=== PATIENT | female | born 1995 | race Caucasian/White ===

== ENCOUNTER 2017-02-24 13:51 | Emergency (ER) | payer OTHER ==
[2017-02-24 13:51] VITALS: BMI 17.7
[2017-02-24 14:30] VITALS: O2SAT 100
[2017-02-24] MEDS ORDERED: Sodium Chloride 0.9% 1,000 ML IV ONE (17:28)
--- NOTE | 2017-02-24 17:51 | C.PDOC ---
History Of Present Illness 21 y/o female whose PMH includes HTN, presents to the ED accompanied by family member (cousin) for evaluation of multiple complaints. For the past year, patient has been experiencing intermittent episodes of generalized fatigue, headaches which radiate to her upper back, abdominal pain, bilateral leg pain, slight weight loss, and irregular menses (LMP 02/17/17). Family member states patient has possible history of anemia which he describes as a "weakness in the blood." [place] [facility] [place] and has been discharged after undergoing workup. Patient states her symptoms have persisted, and she now presents to the ED for further evaluation. Patient states she finds transient relief from Motrin. Patient denies fever, chills, dizziness, nausea, vomiting, diarrhea, constipation, recent trauma/injury. Patient does not take medication to manage her HTN and does not have a PMD currently. [id number] was initially used to obtain history. 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 History obtained from family member who is at bedside with patient. Time Seen by Provider: 02/24/17 17:01 Chief Complaint (Nursing): Headache History Per: Patient, Family (cousin ) History/Exam Limitations: language barrier Onset/Duration Of Symptoms: Intermittent Episodes (1 year) Current Symptoms Are (Timing): Still Present Additional History Per: Patient Past Medical History Reviewed: Historical Data, Nursing Documentation, Vital Signs Vital Signs: Last Vital Signs Temp 98.3 F 02/24/17 18:59 Pulse 61 02/24/17 18:59 Resp 20 02/24/17 18:59 BP 93/57 L 02/24/17 18:59 Pulse Ox 100 02/24/17 18:59 - Medical History PMH: No Chronic Diseases Surgical History: No Surg Hx Family History: States: Hypertension - Social History Hx Alcohol Use: No Hx Substance Use: No - Immunization History Hx Tetanus Toxoid Vaccination: No Hx Influenza Vaccination: No Hx Pneumococcal Vaccination: No Review Of Systems Except As Marked, All Systems Reviewed And Found Negative. Constitutional: Positive for: Weight loss, Other (+generalized fatigue). Negative for: Fever, Chills Cardiovascular: Negative for: Palpitations Respiratory: Negative for: Shortness of Breath Gastrointestinal: Positive for: Abdominal Pain. Negative for: Nausea, Vomiting , Diarrhea, Constipation Musculoskeletal: Positive for: Neck Pain, Back Pain (upper), Leg Pain ( bilaterally ) Neurological: Positive for: Headache. Negative for: Numbness, Dizziness Physical Exam - Physical Exam Appears: Non-toxic, No Acute Distress Skin: Normal Color, Warm, Dry Head: Atraumatic, Normacephalic Eye(s): bilateral: Normal Inspection, EOMI Oral Mucosa: Moist Neck: Normal ROM, No Paracervical Tenderness, Supple Lymphatic: Normal Exam, No Adenopathy Chest: Symmetrical, No Deformity, No Tenderness Cardiovascular: Rhythm Regular, No Murmur Respiratory: Normal Breath Sounds, No Rales, No Rhonchi, No Wheezing Gastrointestinal/Abdominal: Bowel Sounds (active), Soft, Tenderness ( generalized ), No Mass, No Distention, No Guarding, No Rebound, No Hernia Back: Normal Inspection, No Vertebral Tenderness, No Paraspinal Tenderness Extremity: Normal ROM, No Tenderness, Pedal Edema (trace ), No Calf Tenderness, Capillary Refill (less than 2 seconds ), Other (negative Sandeep's sign. Patient is able to dorsiflex ) Pulses: Left Dorsalis Pedis: Normal, Right Dorsalis Pedis: Normal Neurological/Psych: Oriented x3, Normal Speech Gait: Steady ED Course And Treatment - Laboratory Results Result Diagrams: 02/24/17 17:58 02/24/17 17:58 Lab Interpretation: No Acute Changes O2 Sat by Pulse Oximetry: 100 (on RA) Pulse Ox Interpretation: Normal Medical Decision Making Medical Decision Making: Impression: 21y/o female with fatigue, headache, abdominal pain, b/l leg pain for long time, not acute Plan: * labs * IV fluids * reassess and disposition Prior records reviewed patient was seen 02/03/17 at [place] for abdominal pain with labs and CT performed showing left ovarian cyst and normal labs. Progress Notes: Patient was waiting in ED waiting room for approximately 3 hours prior to physical examination. Labs reviewed, normal H/H and no other acute findings. TSH and free T4 normal I explained all results to patient and provide copy of lab work. I advise patient to follow up in the clinic for further evaluation. Patient and family verbalized understanding. Disposition Counseled Patient/Family Regarding: Diagnosis, Need For Followup - Disposition Referrals: [facility] [Outside] [facility] [Outside] Disposition: HOME/ ROUTINE Disposition Time: 18:53 Condition: STABLE Additional Instructions: Please follow up with the clinic in 2-5 days for further evaluation. Return to the emergency department at any time if symptoms persist or worsen. [facility] [phone]. Prescriptions: Ibuprofen [Motrin] 600 mg PO Q8 #30 tab Instructions: Ovarian Cyst (ED), Fatigue (ED) - POA Present On Arrival: None - Clinical Impression Clinical Impression: Fatigue, Normal thyroid function test - PA / [employer] / Resident Statement MD/DO has reviewed & agrees with the documentation as recorded. - Scribe Statement The provider has reviewed the documentation as recorded by the Scribe (Chari Quintero) All medical record entries made by the Scribe were at my direction and personally dictated by me. I have reviewed the chart and agree that the record accurately reflects my personal performance of the history, physical exam, medical decision making, and the department course for this patient. I have also personally directed, reviewed, and agree with the discharge instructions and disposition.
[2017-02-24 18:05] LABS: BASO % 0.7 % (0.0-2.0); EOS # 0.1 K/uL (0.0-0.7); EOS % 1.9 % (0.0-4.0); HEMATOCRIT 38.4 % (34.0-47.0); LYMPH # 2.4 K/uL (1.0-4.3); LYMPH % 40.9 % (20.0-40.0); MEAN CELL VOLUME 83.6 fL (81.0-99.0); MEAN CORPUSCULAR HEMOGLOBIN 27.7 pg (27.0-31.0); MEAN CORPUSCULAR HGB CONC 33.1 g/dL (33.0-37.0); MONO # 0.8 K/uL (0.0-0.8); RED CELL DISTRIBUTION WIDTH 14.3 % (11.5-14.5); WHITE BLOOD COUNT 5.9 K/uL (4.8-10.8)
[2017-02-24 18:12] LABS: CHLORIDE 99 mmol/L (98-107); SODIUM 140 mmol/L (132-148)
[2017-02-24 18:14] LABS: GFR AFRICAN-AMERICAN > 60
[2017-02-24 18:15] LABS: ALB/GLOB RATIO 1.3 (1.0-2.1); ALKALINE PHOSPHATASE 69 U/L (38-126); ALT/SGPT 21 U/L (9-52); AST/SGOT 25 U/L (14-36); BILIRUBIN,TOTAL 0.3 mg/dL (0.2-1.3); BLOOD UREA NITROGEN 13 mg/dL (7-17); CALCIUM 9.2 mg/dl (8.6-10.4); CARBON DIOXIDE 29 mmol/L (22-30); GLUCOSE,RANDOM 82 mg/dL (65-105); RBC URINE < 1 /hpf (0-3); TRANSITIONAL EPITHIAL < 1 /hpf (0-3); URINE BACTERIA RARE (<OCC); URINE BILIRUBIN NEGATIVE (NEGATIVE); URINE BLOOD NEGATIVE (NEGATIVE); URINE COLOR Yellow (YELLOW); URINE GLUCOSE (UA) NORMAL (Normal); URINE KETONE NEGATIVE (NEGATIVE); URINE LEUKOCYTE ESTERASE NEG Leu/uL (Negative); URINE PROTEIN NEGATIVE (NEGATIVE); URINE UROBILINOGEN NORMAL mg/dL (0.2-1.0); WBC URINE 1 /hpf (0-5)
[2017-02-24 18:17] LABS: INR 1.1
[2017-02-24 19:01] VITALS: BP 93/57; PULSE 61; RESP 20; TEMP 98.3
== END 2017-02-24 19:04 | disposition home or self-care (01) ==
LOC: C.ER 13:51
DX: R53.83 Other fatigue (principal); I10 Essential (primary) hypertension